=== PATIENT | male | born 1935 | race Caucasian/White ===

== ENCOUNTER → 2017-06-15 | Day surgery (SDC) | payer MEDICARE, BC ==
[~2017-06-15] VITALS: Ht 175.3 cm; Wt 82.5 kg
[~2017-06-15] MED LIST: ASPIRIN EC81 MG PO; FISH OIL 1,0001 EACH PO; FOLBIC TABLET1 EACH PO; LEVOTHROID (SY50 MCG PO; LOTENSIN20 MG PO; NIACIN CONTROL500 MG PO; NORVASC5 MG PO; PLAVIX75 MG PO; PRAVACHOL40 MG PO; TOPROL XL25 MG PO; VITAMIN D-40400 UNIT PO
--- NOTE | ~2017-06-15 | OR ---
PATIENT'S NAME: POLA MCKOY [facility] AGE: 82 Y [address] ROOM: [place] [address] [place] [facility] [place]: 06/15/2017 OR/Procedure Report DISCHARGE DATE: FAMILY PHYSICIAN: KRISTIN GIBSON MD ATTENDING PHYSICIAN: Kianna Cee SURGEON: Kianna Cee MD POULTRY VETERINARIAN: DATE OF PROCEDURE: 06/15/2017 PREOPERATIVE DIAGNOSIS: Left mid ureteral stones. POSTOPERATIVE DIAGNOSIS: Left mid ureteral stones. PROCEDURES PERFORMED: 1. Cystoscopy. 2. Insertion of ureteral stent, 4.8 x multi length. DESCRIPTION OF PROCEDURE: After adequate anesthesia, he was prepped and draped. The cystoscope was passed. The anterior urethra was normal. Prostatic fossa was normal length, but no significant obstruction. The bladder was normal. X-rays were taken showing 2 stones in the midureter. A guidewire was passed, and then, over the guidewire, a 4.8 Multi-Link stent was passed, coiled nicely in the kidney, the other in the bladder. He tolerated the procedure fine. We will make arrangements for ESWL. KIANNA CEE MD EKL/modl /[id number] d: 06/15/17 1803 t: 06/19/17 0441, OPERATIVE SUMMARY
== END | disposition disaster alternative care site (69) ==
LOC: GSDC 11:54 → GPOC 12:30
PROC: 0T778DZ Dilation of Left Ureter with Intraluminal Device, Via Natural or Artificial Opening Endoscopic (ICD-10-PCS; principal; 2017-06-15)
DX: N13.2 Hydronephrosis with renal and ureteral calculous obstruction (principal); M19.90 Unspecified osteoarthritis, unspecified site; K21.9 Gastro-esophageal reflux disease without esophagitis; I25.10 Atherosclerotic heart disease of native coronary artery without angina pectoris; E78.00 Pure hypercholesterolemia, unspecified; I10 Essential (primary) hypertension; I25.2 Old myocardial infarction; E03.9 Hypothyroidism, unspecified; E78.5 Hyperlipidemia, unspecified; Z85.46 Personal history of malignant neoplasm of prostate; Z95.1 Presence of aortocoronary bypass graft; Z98.890 Other specified postprocedural states; Z79.899 Other long term (current) drug therapy; Z79.82 Long term (current) use of aspirin; Z88.5 Allergy status to narcotic agent; Z88.8 Allergy status to other drugs, medicaments and biological substances
CPT/HCPCS: C1769; C2617; J1956; J2001; J7030

== ENCOUNTER → 2017-06-20 | Day surgery (SDC) | payer MEDICARE, BC ==
[~2017-06-20] VITALS: Ht 175.3 cm; Wt 78.9 kg
--- NOTE | ~2017-06-20 | OR ---
PATIENT'S NAME: POLA MCKOY [facility] AGE: 82 Y [address] ROOM: [place] [address] [place] [facility] [place] DATE: 06/20/2017 OR/Procedure Report DISCHARGE DATE: FAMILY PHYSICIAN: KRISTIN GIBSON MD ATTENDING PHYSICIAN: Kianna Cee SURGEON: Kianna Cee MD BIOLOGY SPECIALIST: DATE OF PROCEDURE: 06/20/2017 PREOPERATIVE DIAGNOSIS: Left ureteral stone. POSTOPERATIVE DIAGNOSIS: Left ureteral stone. PROCEDURE: ESWL. DESCRIPTION OF PROCEDURE: After adequate anesthesia, he was placed on the lithotripsy table. The stone was localized and impulses were directed at the stone, starting at 16 kV, increased to 26 kV. 3000 impulses were directed and appeared to fragment fairly nicely, but maybe not completely. We will take again x-ray in 2 weeks. KIANNA CEE MD EKL/modl /[id number] d: 06/20/17 1146 t: 06/21/17 0501, OPERATIVE SUMMARY
== END ==
LOC: GSDC 08:07
PROC: 0TF7XZZ Fragmentation in Left Ureter, External Approach (ICD-10-PCS; principal; 2017-06-20)
DX: N13.2 Hydronephrosis with renal and ureteral calculous obstruction (principal); M19.90 Unspecified osteoarthritis, unspecified site; K21.9 Gastro-esophageal reflux disease without esophagitis; I25.10 Atherosclerotic heart disease of native coronary artery without angina pectoris; E78.00 Pure hypercholesterolemia, unspecified; I10 Essential (primary) hypertension; I25.2 Old myocardial infarction; E78.5 Hyperlipidemia, unspecified; E03.9 Hypothyroidism, unspecified; Z85.46 Personal history of malignant neoplasm of prostate; Z98.890 Other specified postprocedural states; Z95.1 Presence of aortocoronary bypass graft; Z79.82 Long term (current) use of aspirin; Z79.899 Other long term (current) drug therapy; Z88.5 Allergy status to narcotic agent; Z88.8 Allergy status to other drugs, medicaments and biological substances
CPT/HCPCS: J2001; J7120

== ENCOUNTER → 2017-07-04 | Outpatient (CLI) | payer MEDICARE, BC | END | disposition disaster alternative care site (69) | LOC: GRAD 12:12 | DX: N20.0 Calculus of kidney (principal); Z96.0 Presence of urogenital implants ==